=== PATIENT | female | born 1995 | race Caucasian/White ===

== ENCOUNTER 2018-09-04 04:17 | Emergency (ER) | payer SELFPAY, OTHER ==
[2018-09-04] MEDS: ONDANSETRON (ODT) 4 MG TAB ODT (05:43)
[2018-09-04] MEDS: DIPHTH/TET/ACEL PERTUSS (ADULT) 0.5 ML VIAL IM* (06:29)
[2018-09-04] MEDS: LIDOCAINE 1% (MDV) 20 ML INJ INJ (06:44)
[2018-09-04] MEDS: LIDOCAINE 1% (MDV) 10 ML INJ INJ (06:44)
== END 2018-09-04 08:16 | disposition home or self-care (01) ==
LOC: FTE 08:16
DX: S01.01XA Laceration without foreign body of scalp, initial encounter (principal); S02.2XXA Fracture of nasal bones, initial encounter for closed fracture; W25.XXXA Contact with sharp glass, initial encounter; Y92.89 Other specified places as the place of occurrence of the external cause; Z23 Encounter for immunization
CPT/HCPCS: 12002; 70450; 70486; 90471; 90715; 99284-25